=== PATIENT | female | born 1985 | race Caucasian/White ===

== ENCOUNTER 2017-10-17 06:13 | Emergency (ER) | payer MEDICAID, OTHER ==
[~2017-10-17] VITALS: Ht 170.2 cm; Wt 103.0 kg
[~2017-10-17 06:13] MED LIST: NORCO10T PO; ONDA8TAB6 PO
[2017-10-17 06:15] VITALS: BP 130/80
[2017-10-17] MEDS ORDERED: ibuprofen tablet 400 MG TABLET PO ONE (06:50)
[2017-10-17] MEDS ORDERED: acetaminophen 325mg tablet PO ONE (06:50)
== END 2017-10-17 07:00 | disposition home or self-care (01) ==
LOC: ER 06:13
DX: S69.92XA Unspecified injury of left wrist, hand and finger(s), initial encounter (principal); W22.8XXA Striking against or struck by other objects, initial encounter; Y93.89 Activity, other specified; Y92.89 Other specified places as the place of occurrence of the external cause; Y99.8 Other external cause status; Z90.49 Acquired absence of other specified parts of digestive tract
CPT/HCPCS: 73140; 99284

== ENCOUNTER 2018-03-04 11:34 | Emergency (ER) | payer OTHER ==
[~2018-03-04 11:34] MED LIST changes: +HYDR-4383 PO; -NORCO10T PO; -ONDA8TAB6 PO
== END 2018-03-04 13:38 | disposition left against medical advice (07) ==
LOC: ER 11:34
DX: K08.89 Other specified disorders of teeth and supporting structures (principal); Z53.21 Procedure and treatment not carried out due to patient leaving prior to being seen by health care provider

== ENCOUNTER 2020-02-21 22:12 | Emergency (ER) | payer OTHER ==
[~2020-02-21] VITALS: Ht 170.2 cm; Wt 118.2 kg
[2020-02-21 22:18] VITALS: BP 153/74
[2020-02-21] MEDS ORDERED: PRED20TA PO (22:27)
[2020-02-21] MEDS ORDERED: CLIN150C2 PO (22:27)
[2020-02-21] MEDS ORDERED: dexamethasone 4mg tablet PO ONE (22:30)
== END 2020-02-21 23:20 | disposition home or self-care (01) ==
LOC: ER 22:12
DX: J02.9 Acute pharyngitis, unspecified (principal); Z90.49 Acquired absence of other specified parts of digestive tract; Z79.2 Long term (current) use of antibiotics; Z79.899 Other long term (current) drug therapy
CPT/HCPCS: 99283

== ENCOUNTER 2021-09-02 18:24 | Emergency (ER) | payer SELFPAY ==
[~2021-09-02] VITALS: Ht 170.2 cm; Wt 128.8 kg
[2021-09-02 19:16] VITALS: BP 133/84
== END 2021-09-02 19:45 | disposition home or self-care (01) ==
LOC: ER 18:25
DX: S89.81XA Other specified injuries of right lower leg, initial encounter (principal); W17.89XA Other fall from one level to another, initial encounter; Y93.89 Activity, other specified; Y92.89 Other specified places as the place of occurrence of the external cause; Y99.8 Other external cause status
CPT/HCPCS: 99281